=== PATIENT | female | born 1955 | race Two or more races ===

== ENCOUNTER 2019-09-13 16:43 | Emergency (ER) | payer OTHER ==
[~2019-09-13] VITALS: Ht 160 cm; Wt 60.3 kg
[2019-09-13] MEDS ORDERED: TIROSINT50 MCG (16:53)
[2019-09-13] MEDS ORDERED: VALSARTAN320 MG (16:53)
[2019-09-13] MEDS ORDERED: LOSARTAN POTASS50 MG (16:53)
[2019-09-14] MEDS ORDERED: METOPROLOL SUCC50 MG (17:40)
[2019-09-14] MEDS ORDERED: PERCOGESIC EXT1 EACH (17:40)
== END 2019-09-13 23:50 | disposition home or self-care (01) ==
LOC: ER 16:43
DX: K40.90 Unilateral inguinal hernia, without obstruction or gangrene, not specified as recurrent (principal); R10.31 Right lower quadrant pain; R11.2 Nausea with vomiting, unspecified

== ENCOUNTER 2019-09-14 17:27 | Inpatient (IN) | payer OTHER ==
[~2019-09-14] VITALS: Ht 165.1 cm; Wt 60.3 kg
[~2019-09-14 17:27] MED LIST: LOSARTAN POTASS50 MG; TIROSINT50 MCG; VALSARTAN320 MG
[2019-09-14] MEDS ORDERED: PERCOGESIC EXT1 EACH (17:40)
[2019-09-14] MEDS ORDERED: METOPROLOL SUCC50 MG (17:40)
[2019-09-18] MEDS ORDERED: SIMVASTATIN20 MG PO (11:39)
[2019-09-20] MEDS ORDERED: PERCOCET 5-3251 EACH PO (10:06)
[2019-09-20] MEDS ORDERED: POLY119PG PO (10:07)
== END 2019-09-20 10:26 | disposition home or self-care (01) | DRG 330 ==
LOC: ER 17:27 → SURG 21:43
PROVIDERS: Obstetrics & Gynecology; ADMIT Surgery
PROC: 0UB70ZZ Excision of Bilateral Fallopian Tubes, Open Approach (ICD-10-PCS; 2019-09-15)
PROC: 0UB20ZZ Excision of Bilateral Ovaries, Open Approach (ICD-10-PCS; 2019-09-15)
PROC: 0YQ50ZZ Repair Right Inguinal Region, Open Approach (ICD-10-PCS; 2019-09-15)
PROC: 0UT90ZL Resection of Uterus, Supracervical, Open Approach (ICD-10-PCS; principal; 2019-09-15 10:00)
PROC: 0DTF0ZZ Resection of Right Large Intestine, Open Approach (ICD-10-PCS; 2019-09-15 10:00)
DX: K40.40 Unilateral inguinal hernia, with gangrene, not specified as recurrent (principal); K55.8 Other vascular disorders of intestine; D25.1 Intramural leiomyoma of uterus; D25.0 Submucous leiomyoma of uterus; N83.8 Other noninflammatory disorders of ovary, fallopian tube and broad ligament; D27.0 Benign neoplasm of right ovary; I10 Essential (primary) hypertension; E03.8 Other specified hypothyroidism

== ENCOUNTER 2019-12-19 04:27 | Emergency (ER) | payer OTHER ==
[~2019-12-19] VITALS: Ht 165.1 cm; Wt 56.2 kg
[~2019-12-19 04:27] MED LIST changes: +METOPROLOL SUCC50 MG; +PERCOCET 5-3251 EACH PO; +PERCOGESIC EXT1 EACH; +POLY119PG PO; +SIMVASTATIN20 MG PO
[2019-12-19] MEDS ORDERED: COZAAR100 MG PO (04:39)
[2019-12-19] MEDS ORDERED: NEXIUM 24HR20 M1 PO (07:17)
[2019-12-19] MEDS ORDERED: ONDANSETRON ODT8 MG PO (07:17)
[2019-12-19] MEDS ORDERED: LEVSIN/SL0.125 MG SL (07:17)
== END 2019-12-19 08:14 | disposition home or self-care (01) ==
LOC: ER 04:27
DX: K29.70 Gastritis, unspecified, without bleeding (principal)